=== PATIENT | male | born 1985 | race Caucasian/White ===

== ENCOUNTER → 2022-05-06 | Outpatient (CLI) | payer SELFPAY ==
--- NOTE | 2022-05-05 15:00 | VAS_PTH ---
PATIENT: JEANETTE FITZGERALD LOC: [facility] U#:[id number] AGE/SX: 36/M ROOM: RE05/06/[address]: Dr. Seth Sebastian MD : 1985 BED: DIS: 05/06/2022 SPEC #: [id number] RECD: 05/06/22 07:53 STATUS: PAUL MEIER #: [id number] JAQUELINE: 05/05/22 15:[address]: Seth Sebastian DEPT: SURGICAL PATHOLOGY RECD BY: Janet Mcgraw Tissues: A - Vas deferens, NOS B - Vas deferens, NOS Procedures: Surgery Specimen Level II HEADER OPERATION: Bilateral partial vasectomy PRE-OP DIAGNOSIS: Sterilization TISSUE SUBMITTED: A ? Right vas deferens, B ? Left vas deferens MICROSCOPIC DIAGNOSIS A. Right vas deferens, segmental vasectomy: Complete cross-section of vas deferens with no pathologic change. B. Left vas deferens, segmental vasectomy: Complete cross-section of vas deferens with no pathologic change. AM:demi 05/09/2022 MICROSCOPIC DESCRIPTION Slides are reviewed. GROSS DESCRIPTION A - Received is one container designated right vas deferens. The specimen consists of a cylindrical segment of pink-funk soft tissue measuring 1 cm in length and 0.2 cm in maximum diameter. The specimen is serially sectioned and totally submitted in one cassette. B - Received is one container designated left vas deferens. The specimen consists of a cylindrical segment of pink-funk soft tissue measuring 1.7 cm in length and 0.2 cm in maximum diameter. The specimen is serially sectioned and totally submitted in one cassette. / AM:demi 05/06/2022 TC:4 CPT: 69085 x2
== END | disposition home or self-care (01) ==
LOC: LABSPEC 09:33
PROVIDERS: Referring Provider Surgery; Visit Provider Surgery
DX: Z30.2 Encounter for sterilization (principal)
CPT/HCPCS: 88302